=== PATIENT | female | born 1970 | race Caucasian/White ===

== ENCOUNTER → 2016-12-25 | Outpatient (CLI) | payer OTHER ==
--- NOTE | 2016-12-25 10:54 | US ---
Diagnostic Right Breast Ultrasound History: Asymmetry on mammograms. Comparison: Diagnostic mammogram same day. Technique: Limited grayscale and Doppler ultrasound in the region of mammographic abnormality is perf ormed. Real-time sonography is performed by the radiologist. Findings: Ultrasound of the area of mammographic asymmetry is performed, showing a 7 mm cluster of mi crocysts in association with convex anteriorly marginated breast parenchyma, that corresponds to the finding on mammograms. No solid masses or areas of architectural distortion are identified. Scattered additional simple cysts are present. Impression: Cluster of microcysts and benign glandular tissue corresponding to the mammographic asymm etry. BI-RADS 2: Benign Findings. Recommendation: Screening mammograms in one year or sooner if clinically indicated. Findings and recommendations were discussed with the patient. [facility] will send a result letter to the patient.
--- NOTE | 2016-12-25 18:17 | MA ---
Right Unilateral Digital Diagnostic Mammogram History: Anterior right breast asymmetry on screening mammograms. Comparison: Mammograms through September 05, 2009. Technique: MLO spot compression views and exaggerated CC lateral and a true lateral view were obtaine d. Findings: There is persistent mild nodularity of anterior superior breast parenchyma in the region of interest. No suspicious calcifications are identified. Impression: BI-RADS 0: Needs additional imaging evaluation. Recommendation: Ultrasound, which will be performed later the same day. Please see ultrasound report and recommendations. [facility] will send a result letter to the patient.
== END ==
LOC: BRMIMAGING 09:28
PROVIDERS: ATTEND Family Medicine
DX: N60.11 Diffuse cystic mastopathy of right breast (principal)
CPT/HCPCS: 76641-PO; G0206

== ENCOUNTER → 2018-11-20 | Outpatient (CLI) | payer MEDICAID | LOC: BRMIMAGING 14:10 | PROVIDERS: ATTEND Family Medicine | DX: Z12.31 Encounter for screening mammogram for malignant neoplasm of breast (principal) ==